=== PATIENT | female | born 1970 | race Caucasian/White ===

== ENCOUNTER 2018-12-07 05:33 | Outpatient (CLI) | payer BC ==
[~2018-12-07] VITALS: Ht 160 cm; Wt 58.1 kg
[~2018-12-07 05:33] MED LIST: CITA10TA70 PO; HYDR-3720 PO; IBUP800T26 PO; MIDO2.5T PO
[2018-12-07] MEDS ORDERED: CITA10TA12 PO (11:51)
[2018-12-07] MEDS ORDERED: LORA10TA76 PO (11:51)
== END 2018-12-07 12:03 ==
LOC: PREOP 05:33
PROVIDERS: ATTEND Internal Medicine
DX: Z01.818 Encounter for other preprocedural examination (principal); R10.9 Unspecified abdominal pain; R19.7 Diarrhea, unspecified

== ENCOUNTER 2018-12-10 07:19 | Day surgery (SDC) | payer BC ==
--- NOTE | 2018-11-29 21:00 | HISTORY AND PHYSICAL ---
DATE OF SERVICE: COLONOSCOPY HISTORY AND PHYSICAL HISTORY OF PRESENT ILLNESS: The patient is a 48-year-old white female, referred by Dr. Lawler for evaluation of bowel habit change, right mid quadrant and bilateral lower quadrant abdominal discomfort. She reports about two to three-month history of symptoms with some associated bloating. She reports about a 10-pound weight gain over the past six months. She has noted no associated melena or bright red blood per rectum. There is an improvement with the passage of the stool. She has no past history of known irritable bowel syndrome and denied any overt infectious type symptoms. She does have some postprandial loose bowel movements most often after breakfast. She has noted no melena or bright red blood per rectum and has not noted any dietary association. She has no past history of known lactose intolerance. PAST SURGICAL HISTORY: Pertinent for exploratory laparotomy for abdominal wall mass noted along the right lateral margin of previous section incision. It was just noted to be a lymph node and scar tissue and this was performed in [address] Lawler. She states history of endometriosis, still has intact uterus and ovaries and states that she has not been having any menopausal symptoms and not yet felt to be premenopausal with normal periods. FAMILY HISTORY: Both parents are living at the age of 68 with no reported health problems. She is not aware of any family history of inflammatory bowel disease or colon cancer or colon polyps. SOCIAL HISTORY: She is employed, with no past smoking history. Reports three to four glasses of wine per week. MEDICATIONS: She takes no medications. ALLERGIES: She reports an intolerance to CODEINE that causes nausea. REVIEW OF SYSTEMS: CONSTITUTIONAL: She has had no night sweats, chills or fever, but does report about a 10-pound weight gain over the past year. She still has normal weight at 127.6 pounds, roughly 5 feet 2 inches tall. CARDIOVASCULAR: She reports no past history of cardiovascular procedures. She has had no syncope, presyncope, palpitations or heart racing sensation. She denies any orthopnea, PND or pedal edema. PULMONARY: She denies dyspnea on exertion or at rest, cough or wheezing. GASTROINTESTINAL: As noted in the HPI. PHYSICAL EXAMINATION: GENERAL: Reveals a well-appearing white female in no acute distress. HEENT: Unremarkable. Sclerae nonicteric. NECK: Revealed no JVD, adenopathy or bruits. CHEST: Clear to auscultation. CARDIOVASCULAR: Reveals regular rate and rhythm without murmur, S3 or S4. ABDOMEN: Soft, supple without mass or organomegaly. She has some right mid and bilateral lower quadrant discomfort to palpation without rebound or guarding. No bruits are appreciated. ABDOMEN: Soft. EXTREMITIES: Reveal no cyanosis, clubbing or edema. ASSESSMENT AND PLAN: The patient is set up for diagnostic colonoscopy due to reported bowel habit change with abdominal pain. Further recommendations will be pending colonoscopic findings. Job ID: [id number] DocumentID: [id number] Dictated Date: 11/05/2018 08:50:05 Manager Eligibility Date: 11/05/2018 09:57:34 Dictated By: CINDY SUMMERS MD
--- NOTE | 2018-11-29 21:14 | HISTORY AND PHYSICAL ---
DATE OF SERVICE: ADDENDUM The patient was originally seen on 11/04/2018 for screening colonoscopy. She is referred by Dr. Lawler. She had to reschedule the procedure to the 12/10/2018, so this is an addendum on her H and P. In the interval, there have been no changes in her health status. Refer to her initial H and P. She is deemed to be of average risk, so she is not aware of any family history for colon cancer. PHYSICAL EXAMINATION: GENERAL: Reveals a well-appearing white female, voicing no complaints. VITAL SIGNS: Blood pressure 120/78, heart rate 70 and regular. CHEST: Clear to auscultation. CARDIOVASCULAR: Reveals regular rate and rhythm without murmur, S3 or S4. REVIEW OF SYSTEMS: She has had no chest pain, shortness of breath, abdominal pain or blood in her stool and there have been no change in her health status and she was originally evaluated on 11/04/2018. She has prep instructions, so we will be proceeding with planned colonoscopy on 12/10/2018 with no contraindications. Job ID: [id number] DocumentID: [id number] Dictated Date: 11/26/2018 11:40:25 Prospecting Observer Date: 11/26/2018 12:12:03 Dictated By: CINDY SUMMERS MD
[2018-12-10] VITALS (10 sets, daily range): BP systolic 100–123; BP diastolic 61–72
[~2018-12-10] VITALS: Ht 160 cm; Wt 58.1 kg
[~2018-12-10 07:19] MED LIST changes: +CITA10TA12 PO; +LORA10TA76 PO
[2018-12-10] MEDS ORDERED: D5 LR IV SOLUTION 1,000 ML IV ONE (07:29)
[2018-12-10] MEDS ORDERED: D5 LR IV SOLUTION 1,000 ML IV STA (08:07)
[2018-12-10] MEDS ORDERED: LIDOCAINE JELLY 2% 6 ML SYRINGE MM PRN (08:15)
[2018-12-10] MEDS ORDERED: fentaNYL INJECTION 100 MCG/2 ML AMP IVP ONE (08:15)
[2018-12-10] MEDS ORDERED: MIDAZOLAM 2 MG/2 ML (VERSED) VIAL IVP ONE (08:15)
[2018-12-10] MEDS ORDERED: MIDAZOLAM 2 MG/2 ML (VERSED) VIAL ONE ×2 (08:20→08:25)
[2018-12-10] MEDS ORDERED: fentaNYL INJECTION 100 MCG/2 ML AMP ONE (08:20)
--- NOTE | 2018-12-10 11:06 | Pre-Op Note & Conscious Sedat ---
Pre-Operative Progress Note H&P Reviewed The H&P was reviewed, patient examined and no changes noted. Date H&P Reviewed: Dec 10, 2018 Time H&P Reviewed: 07:50 Conscious Sedation Pre-Proced ASA Score 1 For ASA 3 and 4: Consider anesthesia and medical clearance. Also, for patients with a history of failed moderate sedation consider anesthesia. Airway Lungs Heart ASA score ASA 1: a normal healthy patient ASA 2: a patient with a mild systemic disease (mid diabetes, controlled hypertension, obesity ASA 3: a patient with a severe systemic disease that limits activity (angina, COPD, prior Myocardial infarction) ASA 4: a patient with an incapacitating disease that is a constant threat to life (CHF, renal failure) ASA 5: a moribund patient not expected to survive 24 hrs. (ruptured aneurysm) ASA 6: a declared brain- patient whose organs are being harvested. For emergent operations, add the letter E after the classification Mallampati Classification Grade 2 Sedation Plan Analgesia, Amnesia, Plan communicated to team members, Discussed options with patient/fam, Discussed risks with patient/fam The patient is an appropriate candidate to undergo the planned procedure, sedation, and anesthesia. The patient immediately re-assessed prior to indication. CINDY SUMMERS MD Dec 10, 2018 11:06
--- NOTE | 2018-12-10 14:06 | OPERATIVE REPORT ---
DATE OF SERVICE: 12/10/2018 COLONOSCOPY SUMMARY INDICATION FOR THE PROCEDURE: Screening colonoscopy. DESCRIPTION OF PROCEDURE: The patient was placed in the left lateral decubitus position. Prior to undergoing colonoscopy, digital rectal evaluation was performed. Anal sphincter tone was normal and the perianal reflex was intact. No abnormalities were noted on digital inspection of the anal canal or distal rectal vault. The colonoscope was then inserted into the rectum and under direct visualization advanced to the cecum. The cecum was identified by identification of the ileocecal valve and cecal strap. Photographic documentation was obtained. A careful inspection was made as the colonoscope was withdrawn. FINDINGS: The rectum, sigmoid colon, descending colon, splenic flexure, transverse colon, hepatic flexure, ascending colon and cecum were unremarkable with no evidence for neoplasia, diverticular disease or other abnormality. ASSESSMENT AND PLAN: Normal colonoscopy to the cecum. The patient reports no family history for colon cancer or polyps that she is aware of, so I would advocate consideration for repeat screening colonoscopy in 10 years. I thank you for the referral of this pleasant lady. Sincerely, Job ID: [id number] DocumentID: [id number] Dictated Date: 12/10/2018 10:55:03 Membership Advisor Date: 12/10/2018 14:05:29 Dictated By: CINDY SUMMERS MD
== END 2018-12-10 09:25 | disposition home or self-care (01) ==
LOC: ENDO 07:19
PROVIDERS: ATTEND Internal Medicine
DX: Z12.11 Encounter for screening for malignant neoplasm of colon (principal); K58.9 Irritable bowel syndrome, unspecified; Z88.6 Allergy status to analgesic agent; Z79.899 Other long term (current) drug therapy

== ENCOUNTER → 2018-12-14 | Outpatient (CLI) | payer BC ==
--- NOTE | 2018-12-14 13:08 | Diagnostic Imaging Report ---
PROCEDURE: US Gallbladder. TECHNIQUE: Multiple real-time grayscale images were obtained over the right upper quadrant in various projections. INDICATION: Right upper quadrant abdominal pain. COMPARISON: None. FINDINGS: Liver: Normal in size and echotexture. No focal lesion is seen. Gallbladder: Normal. No stones or gallbladder wall thickening. No pericholecystic fluid. Negative sonographic Moreno's sign. Biliary Tree: No intrahepatic or extrahepatic bile duct dilation is identified. The proximal common duct measures 0.4 cm in diameter. Pancreas: No abnormality in the visualized portions of the pancreas. Right kidney: Normal parenchymal echotexture and thickness. No hydronephrosis, stone or mass. IMPRESSION: Normal right upper quadrant abdominal ultrasound. Dictated by: Dictated on workstation # [id number]
== END ==
LOC: RAD 12:10
PROVIDERS: ATTEND Nurse Practitioner Family
DX: R10.11 Right upper quadrant pain (principal)
CPT/HCPCS: 76705

== ENCOUNTER → 2019-01-06 | Outpatient (CLI) | payer BC ==
[~2019-01-06] MED LIST changes: +CATHETER FLUSH 10 ML SYR IV PRN
--- NOTE | 2019-01-06 15:11 | Diagnostic Imaging Report ---
EXAMINATION: Hepatobiliary scan. INDICATION: Abdominal pain. FINDINGS: This study was performed following administration of 5.46 mCi of Choletec. There are no prior nuclear medicine studies available for comparison. The gallbladder ultrasound exam 12/14/2018 failed to show any signs of cholelithiasis or acute cholecystitis. On this exam, there was uptake of the radiotracer by the liver and excretion through the common bile duct into the small bowel; however, there is no accumulation of the radiotracer within the gallbladder at 60 minutes. At 2 hours, there was still no evidence for accumulation of the radiotracer within the gallbladder. By history, the patient is allergic to morphine. IMPRESSION: 1. There is uptake and excretion of the radiotracer by the liver. There is evidence of the radiotracer within the small bowel indicating the common bile duct is not obstructed. 2. The gallbladder was not visualized. The reason for this is not certain, but the possibility of acute cholecystitis should certainly be considered. A surgical consult will be recommended if clinically indicated. 3. These results were discussed with ONEYDA Clarke. Dictated by: Dictated on workstation # [id number]
== END ==
LOC: CARD 09:39
PROVIDERS: ATTEND Nurse Practitioner Family
DX: K58.9 Irritable bowel syndrome, unspecified (principal)
CPT/HCPCS: 78226

== ENCOUNTER 2020-10-24 16:40 | Emergency (ER) | payer BC ==
[~2020-10-24] VITALS: Ht 162 cm; Wt 58.0 kg
[~2020-10-24 16:40] MED LIST changes: -CATHETER FLUSH 10 ML SYR IV PRN
--- NOTE | 2020-10-24 17:09 | ED Neurological Problem ---
General Chief Complaint: Altered Mental Status Stated Complaint: AMS Source: patient, family () Exam Limitations: no limitations History of Present Illness Date Seen by Provider: Oct 24, 2020 Time Seen by Provider: 16:50 Initial Comments 50 y/o female present with her for memory loss today. States she was at work and this afternoon realized she didn't remember most of her day (several hours). She was working alone today so no one witnessed any change of behavior. She called her around 4 pm and asked him to come and get her. She remembers this morning and getting to work and felt fine. She remembers the first part of her day and interactions with co-workers. Denies headache, nausea or vomiting. Does feel "dizzy", but denies localized or generalized weakness or change of vision. Denies recent illness, fever or chills. PMHx signif for diet controlled DM. On no Rx meds. Allergies and Home Medications Allergies Coded Allergies: morphine (Unverified Allergy, Mild, Itching, 12/07/18) Home Medications Citalopram Hydrobromide 10 Mg Tablet, 10 MG PO DAILY, (Reported) Loratadine 10 Mg Tablet, 10 MG PO DAILY, (Reported) Patient Home Medication List Home Medication List Reviewed: Yes Review of Systems Review of Systems Constitutional: No chills; dizziness; No fever, No malaise, No weakness Eyes: No Symptoms Reported; Denies Blindness, Denies Blurred Vision Ears, Nose, Mouth, Throat: no symptoms reported Respiratory: No cough, No short of breath Cardiovascular: No chest pain, No edema, No palpitations, No syncope Gastrointestinal: No abdominal pain, No nausea, No vomiting Genitourinary: No dysuria, No frequency, No hematuria Musculoskeletal: No back pain, No joint pain, No muscle pain, No neck pain Skin: No change in color, No lesions, No rash Psychiatric/Neurological: Denies Anxiety, Denies Depressed, Denies Headache, Denies Numbness, Denies Tingling Past Mprzurc-Bfgzid-Yumdog Hx Patient Social History Tobacco Use?: No Use of E-Cig and/or Vaping dev: No Substance use?: No Alcohol Use?: No Pt feels they are or have been: No Seasonal Allergies Seasonal Allergies: No Past Medical History Surgeries: Yes (C/S X3, REVISION OF SCARS) Respiratory: No Cardiac: No Neurological: No Sexually Transmitted Disease: No HIV/AIDS: No Genitourinary: Yes Kidney Stones Gastrointestinal: No (ABD PAIN) Chronic Diarrhea Musculoskeletal: No Endocrine: No HEENT: No (READING GLASSES) Loss of Vision: Denies Hearing Impairment: Denies Cancer: No Psychosocial: Yes Anxiety, Depression Integumentary: No Blood Disorders: No Adverse Reaction/Blood Tranf: No Family Medical History No Family History of: AIDS Alcoholism Arthritis Asthma Cancer of mouth Cardiovascular disease Colon cancer Completed stroke Dementia Diabetes mellitus Hypertension Kidney disease Myocardial infarction Parkinson's disease Prostate cancer Psychosocial problem Respiratory disorder Seizure disorder Severe allergy Thyroid disease Tuberculosis Physical Exam Vital Signs Vital Signs - First Documented 10/24/20 16:45 Temp 36.8 Pulse 71 Resp 18 B/P (MAP) 183/87 (119) Pulse Ox 98 O2 Delivery Room Air Capillary Refill : Height, Weight, BMI Height: 5'3.00" Weight: 128lbs. 0.0oz. 58.741144im; 22.7 BMI Method: General Appearance: WD/WN, no apparent distress HEENT: PERRL/EOMI, normal ENT inspection Neck: non-tender, full range of motion, supple Respiratory: chest non-tender, lungs clear, normal breath sounds, no respiratory distress, no accessory muscle use Cardiovascular: regular rate, rhythm, no edema, no JVD Gastrointestinal: normal bowel sounds, non tender, soft, no organomegaly, no pulsatile mass Back: normal inspection, no CVA tenderness Extremities: normal range of motion, non-tender, normal inspection, no pedal edema, no calf tenderness Neurologic/Psychiatric: primary teaching assistant II-XII nml as tested, no motor/sensory deficits, a lert, normal mood/affect, oriented x 3 Crainal Nerves: normal hearing, normal speech, PERRL Coordination/Gait: normal finger to nose, normal gait, negative Romberg's sign Motor/Sensory: no motor deficit, no sensory deficit, no pronator drift, negative Babinski's sign, positive Babinski's sign Skin: normal color, warm/dry Focused Exam Lactate Level 10/24/20 17:09: Lactic Acid Level 1.09 Lactic Acid Level Laboratory Tests Test 10/24/20 17:09 Lactic Acid Level 1.09 MMOL/L (0.50-2.00) Progress/Results/Core Measures Results/Orders Lab Results Laboratory Tests Test 10/24/20 16:45 10/24/20 16:47 10/24/20 17:09 10/24/20 17:32 Range/Units White Blood Count 10.8 4.3-11.0 10^3/uL Red Blood Count 4.49 4.35-5.85 10^6/uL Hemoglobin 13.4 11.5-16.0 G/DL Hematocrit 41 35-52 % Mean Corpuscular Volume 92 80-99 FL Mean Corpuscular Hemoglobin 30 25-34 PG Mean Corpuscular Hemoglobin Concent 33 32-36 G/DL Red Cell Distribution Width 12.3 10.0-14.5 % Platelet Count 318 130-400 10^3/uL Mean Platelet Volume 10.3 7.4-10.4 FL Immature Granulocyte % (Auto) 0 % Neutrophils (%) (Auto) 68 42-75 % Lymphocytes (%) (Auto) 23 12-44 % Monocytes (%) (Auto) 6 0-12 % Eosinophils (%) (Auto) 2 0-10 % Basophils (%) (Auto) 1 0-10 % Neutrophils # (Auto) 7.3 1.8-7.8 X 10^3 Lymphocytes # (Auto) 2.5 1.0-4.0 X 10^3 Monocytes # (Auto) 0.6 0.0-1.0 X 10^3 Eosinophils # (Auto) 0.2 0.0-0.3 10^3/uL Basophils # (Auto) 0.1 0.0-0.1 10^3/uL Immature Granulocyte # (Auto) 0.0 0.0-0.1 10^3/uL Sodium Level 137 135-145 MMOL/L Potassium Level 3.8 3.6-5.0 MMOL/L Chloride Level 99 98-107 MMOL/L Carbon Dioxide Level 26 21-32 MMOL/L Anion Gap 12 5-14 MMOL/L Blood Urea Nitrogen 8 7-18 MG/DL Creatinine 0.63 0.60-1.30 MG/DL Estimat Glomerular Filtration Rate 100 BUN/Creatinine Ratio 13 Glucose Level 96 70-105 MG/DL Calcium Level 9.8 8.5-10.1 MG/DL Corrected Calcium 8.5-10.1 MG/DL Magnesium Level 1.9 1.6-2.4 MG/DL Total Bilirubin 1.1 H 0.1-1.0 MG/DL Aspartate Amino Transf (AST/SGOT) 19 5-34 U/L Alanine Aminotransferase (ALT/SGPT) 18 0-55 U/L Alkaline Phosphatase 78 40-136 U/L Troponin I < 0.30 <0.30 NG/ML C-Reactive Protein < 0.30 <0.50 MG/DL Total Protein 7.7 6.4-8.2 GM/DL Albumin 4.9 H 3.2-4.5 GM/DL Serum Alcohol < 10 <10 MG/DL Glucometer 90 70-110 MG/DL Lactic Acid Level 1.09 0.50-2.00 MMOL/L Urine Color YELLOW Urine Clarity SL CLOUDY Urine pH 6.0 5-9 Urine Specific [place] 1.020 1.016-1.022 Urine Protein NEGATIVE NEGATIVE Urine Glucose (UA) NEGATIVE NEGATIVE Urine Ketones TRACE H NEGATIVE Urine Nitrite NEGATIVE NEGATIVE Urine Bilirubin NEGATIVE NEGATIVE Urine Urobilinogen 0.2 < = 1.0 MG/DL Urine Leukocyte Esterase NEGATIVE NEGATIVE Urine RBC (Auto) NEGATIVE NEGATIVE Urine RBC NONE /HPF Urine WBC 0-2 /HPF Urine Squamous Epithelial Cells 25-50 H /HPF Urine Crystals NONE /LPF Urine Bacteria MODERATE H /HPF Urine Casts NONE /LPF Urine Mucus NEGATIVE /LPF Urine Culture Indicated NO Urine Opiates Screen NEGATIVE NEGATIVE Urine Oxycodone Screen NEGATIVE NEGATIVE Urine Methadone Screen NEGATIVE NEGATIVE Urine Propoxyphene Screen NEGATIVE NEGATIVE Urine Barbiturates Screen NEGATIVE NEGATIVE Ur Tricyclic Antidepressants Screen NEGATIVE NEGATIVE Urine Phencyclidine Screen NEGATIVE NEGATIVE Urine Amphetamines Screen NEGATIVE NEGATIVE Urine Methamphetamines Screen NEGATIVE NEGATIVE Urine Benzodiazepines Screen NEGATIVE NEGATIVE Urine Cocaine Screen NEGATIVE NEGATIVE Urine Cannabinoids Screen NEGATIVE NEGATIVE My Orders Orders - JAYLA TREJO DO Ed Iv/Invasive Line Start (10/24/20 17:00) Cbc With Automated Diff (10/24/20 17:00) Comprehensive Metabolic Panel (10/24/20 17:00) Magnesium (10/24/20 17:00) Lactic Acid Analyzer (10/24/20 17:00) Drug Screen Stat (Urine) (10/24/20 17:00) Urinalysis (10/24/20 17:00) Crp Fs (10/24/20 17:00) Alcohol (10/24/20 17:00) Ct Head Wo (10/24/20 17:00) Troponin I Fs (10/24/20 17:00) Ekg Tracing (10/24/20 17:00) Vital Signs/I&O 10/24/20 10/24/20 16:45 18:32 Temp 36.8 36.2 Pulse 71 70 Resp 18 16 B/P (MAP) 183/87 (119) 122/76 Pulse Ox 98 99 O2 Delivery Room Air Room Air Progress Progress Note : Progress Note Patient alert and oriented with normal behavior and conversation. Ambulates throughout the ER and conversive with staff. Still states she does not remember a period time while at work today and is unaware of who she may have had contact with if anyone during that time. Normal exam, normal CT scan of her brain and normal labs including tox screen. Reassurance given, advised follow-up PCP with a phone call tomorrow to consider neurologic evaluation. Also advised to return to the nearest ER should her symptoms return or progress. Initial ECG Impression Date: Oct 24, 2020 Initial ECG Impression Time: 17:15 Initial ECG Rate: 70 Initial ECG Rhythm: Normal Sinus Initial ECG Impression: Normal Initial ECG Comparisson: No Previous ECG Available Comment inferior Q-waves and widened QRS Diagnostic Imaging Diagonstic Imaging: CT Plain Films/CT/US/NM/MRI: head Comments Date of Exam:10/24/20 CT HEAD WO INDICATION: Amnesia, altered mental status. TECHNIQUE: Multiple contiguous axial images were obtained through the brain without the use of intravenous contrast. Auto Exposure Controls were utilized during the CT exam to meet ALARA standards for radiation dose reduction. COMPARISON: There is no previous study for comparison. FINDINGS: There were no extra-axial fluid collections. No intracranial hemorrhage. No intracranial mass or mass effect. No midline shift. The ventricles are normal in size and position. There were no focal parenchymal abnormalities in the brain. Calvarial windows are unremarkable. IMPRESSION: Negative noncontrast brain CT. Dictated by: Dictated on workstation # [id number] Dict: 10/24/201708 Trans: 10/24/201713 AS6 [id number] Interpreted by: NADEEM GILMORE MD Electronically signed by: NADEEM GILMORE MD 10/24/201713 Departure Impression Primary Impression: Transient global amnesia Disposition: 01 HOME, SELF-CARE Condition: Improved Departure-Patient Inst. Referrals: ARACELY ROSA DO (PCP/Family) Primary Care Physician Patient Instructions: Amnesia Add. Discharge Instructions: Call Dr Rosa tomorrow morning to schedule a follow up appointment this week. He may want to refer you to a Neurologist at his discretion. You may resume normal activities as tolerated. If your symptoms return please return to the nearest ER for re-evaluation All discharge instructions reviewed with patient and/or family. Voiced understanding. JAYLA TREJO DO Oct 24, 2020 17:09
--- NOTE | 2020-10-24 17:12 | Diagnostic Imaging Report ---
INDICATION: Amnesia, altered mental status. TECHNIQUE: Multiple contiguous axial images were obtained through the brain without the use of intravenous contrast. Auto Exposure Controls were utilized during the CT exam to meet ALARA standards for radiation dose reduction. COMPARISON: There is no previous study for comparison. FINDINGS: There were no extra-axial fluid collections. No intracranial hemorrhage. No intracranial mass or mass effect. No midline shift. The ventricles are normal in size and position. There were no focal parenchymal abnormalities in the brain. Calvarial windows are unremarkable. IMPRESSION: Negative noncontrast brain CT. Dictated by: Dictated on workstation # [id number]
[2020-10-24 17:27] LABS: BASOPHILS # (AUTO) 0.1 10^3/uL (0.0-0.1); BASOPHILS % (AUTO) 1 % (0-10); EOSINOPHILS # (AUTO) 0.2 10^3/uL (0.0-0.3); EOSINOPHILS % (AUTO) 2 % (0-10); HEMATOCRIT 41 % (35-52); HEMOGLOBIN 13.4 G/DL (11.5-16.0); LYMPHOCYTES # (AUTO) 2.5 X 10^3 (1.0-4.0); LYMPHOCYTES % (AUTO) 23 % (12-44); MEAN CORPUSCULAR HEMOGLOBIN 30 PG (25-34); MEAN CORPUSCULAR HGB CONC 33 G/DL (32-36); MEAN CORPUSCULAR VOLUME 92 FL (80-99); MEAN PLATELET VOLUME 10.3 FL (7.4-10.4); MONOCYTES # (AUTO) 0.6 X 10^3 (0.0-1.0); MONOCYTES % (AUTO) 6 % (0-12); NEUTROPHILS # (AUTO) 7.3 X 10^3 (1.8-7.8); NEUTROPHILS % (AUTO) 68 % (42-75); PLATELET COUNT 318 10^3/uL (130-400); WHITE BLOOD COUNT 10.8 10^3/uL (4.3-11.0)
[2020-10-24 17:30] LABS: CARBON DIOXIDE 26 MMOL/L (21-32); CHLORIDE 99 MMOL/L (98-107); POTASSIUM 3.8 MMOL/L (3.6-5.0); SODIUM 137 MMOL/L (135-145)
[2020-10-24 17:31] LABS: ALANINE AMINOTRANSFERASE 18 U/L (0-55); ALBUMIN 4.9 GM/DL (3.2-4.5); ALKALINE PHOSPHATASE 78 U/L (40-136); BILIRUBIN,TOTAL 1.1 MG/DL (0.1-1.0); BUN/CREATININE RATIO 13; CALCIUM 9.8 MG/DL (8.5-10.1); CREATININE SERUM 0.63 MG/DL (0.60-1.30); GFR ESTIMATED 100; GLUCOSE 96 MG/DL (70-105); MAGNESIUM 1.9 MG/DL (1.6-2.4); TOTAL PROTEIN 7.7 GM/DL (6.4-8.2)
[2020-10-24 17:43] LABS: BILIRUBIN,URINE NEGATIVE (NEGATIVE); CLARITY,URINE SL CLOUDY; COLOR,URINE YELLOW; GLUCOSE, URINE (UA) NEGATIVE (NEGATIVE); KETONES,URINE TRACE (NEGATIVE); LEUKOCYTE ESTERASE ,URINE NEGATIVE (NEGATIVE); NITRITE,URINE NEGATIVE (NEGATIVE); PROTEIN,URINE NEGATIVE (NEGATIVE)
[2020-10-24 17:44] LABS: BACTERIA,URINE MODERATE /HPF; SQUAMOUS EPITHELIAL CELL,UR 25-50 /HPF; WBC,URINE 0-2 /HPF
[2020-10-24 17:48] LABS: AMPHETAMINE SCREEN, URINE NEGATIVE (NEGATIVE); BARBITURATE SCREEN URINE NEGATIVE (NEGATIVE); BENZODIAZEPINES SCREEN URINE NEGATIVE (NEGATIVE); CANNABINOID SCREEN, URINE NEGATIVE (NEGATIVE); COCAINE SCREEN URINE NEGATIVE (NEGATIVE); METHADONE STAT NEGATIVE (NEGATIVE); METHAMPHETAMINE SCREEN URINE S NEGATIVE (NEGATIVE); OPIATE SCREEN URINE NEGATIVE (NEGATIVE); OXYCODONE STAT NEGATIVE (NEGATIVE); PROPOXYPHENE STAT NEGATIVE (NEGATIVE); TRICYCLIC ANTIDEPRESSANTS SCRE NEGATIVE (NEGATIVE)
[2020-10-24 18:32] VITALS: BP 122/76
== END 2020-10-24 18:33 | disposition home or self-care (01) ==
LOC: EDUNIT# 16:40 → ER FS 16:41
DX: G45.4 Transient global amnesia (principal); F41.9 Anxiety disorder, unspecified; F32.9 Major depressive disorder, single episode, unspecified; Z79.899 Other long term (current) drug therapy
CPT/HCPCS: 36415; 70450; 80053; 80306; 81000; 82947; 83605; 83735; 84484; 85025; 86141; 93005; 99284; G0480; 80320

== ENCOUNTER → 2021-03-15 | Outpatient (CLI) | payer BC ==
--- NOTE | 2021-03-15 11:35 | Diagnostic Imaging Report ---
INDICATION: Fall with left foot pain. TIME OF EXAM: 10:51 AM FINDINGS: 3 views of the left foot were obtained. Metatarsals and phalanges are intact. Midfoot and hindfoot are unremarkable. No fractures are seen. IMPRESSION: No acute bony normality is detected. Dictated by: Dictated on workstation # [id number]
--- NOTE | 2021-03-15 11:36 | Diagnostic Imaging Report ---
INDICATION: Fall with left wrist pain. TIME OF EXAM: 10:53 AM 3 views of the left wrist were obtained. Distal radius and ulna are intact. Carpus appears intact. Visualized metacarpals are intact. No fractures are seen. IMPRESSION: No acute bony abnormality is detected. Dictated by: Dictated on workstation # [id number]
== END ==
LOC: RAD 10:25
PROVIDERS: ATTEND Nurse Practitioner Family
DX: M79.672 Pain in left foot (principal); M25.532 Pain in left wrist; W19.XXXA Unspecified fall, initial encounter
CPT/HCPCS: 73110; 73630

== ENCOUNTER → 2022-05-26 | Outpatient (CLI) | payer BC | LOC: CARD 10:00 | PROVIDERS: ATTEND Nurse Practitioner Family | DX: R01.1 Cardiac murmur, unspecified (principal); R00.2 Palpitations | CPT/HCPCS: 93246; C8929; 93306 ==

== ENCOUNTER → 2022-07-04 | Outpatient (CLI) | payer BC ==
[~2022-07-04] MED LIST changes: +CATHETER FLUSH 10 ML SYR IVP PRN
[2022-07-04 07:54] VITALS: BP 122/76
--- NOTE | 2022-07-09 12:53 | STRESS TEST ---
DATE OF SERVICE: 07/04/2022 RESTING AND POST EXERCISE TECHNETIUM-99M TETROFOSMIN SPECT CT IMAGING ORDERING PHYSICIAN: Dr. Noriega. PRIMARY PHYSICIAN: Dr. Noriega. CLINICAL DIAGNOSIS: Chest pain. Baseline images were carried out after injection of 10.64 mCi of technetium-99m tetrofosmin. Subsequently, exercise was carried out on a treadmill under Dr. Noriega's supervision and that part of the study is reported separately by him. After the patient had attained more than 85% of maximum predicted heart rate, 32.6 mCi of technetium-99m tetrofosmin were injected and the exercise was continued for another minute. Review of images at rest and following stress does not indicate any distinct perfusion defects consistent with significant myocardial ischemia or infarction. Gated images show normal global left ventricular systolic function with normal regional wall motion. Left ventricular ejection fraction is calculated to be 71%. CONCLUSIONS: 1. No evidence of significant myocardial ischemia or infarction on this study. 2. Normal regional wall motion. 3. Normal global left ventricular systolic function with a calculated ejection fraction of 71%. Job ID: [id number] DocumentID: [id number] Dictated Date: 07/09/2022 10:03:45 Counter Maker Date: 07/09/2022 12:52:00 Dictated By: CASEY RODGERS MD; SARAH; FACP; FACC;
== END ==
LOC: CARD 06:47
PROVIDERS: ATTEND Nurse Practitioner Family
DX: R01.1 Cardiac murmur, unspecified (principal); R00.2 Palpitations; R07.9 Chest pain, unspecified
CPT/HCPCS: 78452; 93017; A9502